=== PATIENT | male | born 1975 | race Caucasian/White ===

== ENCOUNTER → 2018-11-17 | Outpatient (CLI) | payer OTHER ==
[~2018-11-17] MED LIST: AUGMENTIN 500 M1 TAB PO; CLARITIN10 MG PO; LEVOFLOXACIN500 MG PO; MOTRIN800 MG PO; NAPROSYN500 MG PO; ULTRAM50 MG PO
== END | disposition home or self-care (01) ==
LOC: RAD 07:27
DX: J18.9 Pneumonia, unspecified organism (principal)

== ENCOUNTER → 2018-12-03 | Outpatient (CLI) | payer OTHER ==
[~2018-12-03] MED LIST changes: +FLONASE ALLERG9.9 ML NAS; +PROVENTIL HFA6.7 GM PO
== END | disposition home or self-care (01) ==
LOC: RAD 13:10
DX: J18.9 Pneumonia, unspecified organism (principal)

== ENCOUNTER → 2018-12-17 | Outpatient (CLI) | payer OTHER | END | disposition home or self-care (01) | LOC: RAD 15:22 | DX: J98.3 Compensatory emphysema (principal); R07.9 Chest pain, unspecified ==

== ENCOUNTER → 2018-12-22 | Outpatient (CLI) | payer OTHER | END | disposition home or self-care (01) | LOC: CT 16:26 | DX: R91.8 Other nonspecific abnormal finding of lung field (principal); R07.89 Other chest pain; R05 Cough; R06.02 Shortness of breath; R09.89 Other specified symptoms and signs involving the circulatory and respiratory systems ==

== ENCOUNTER → 2018-12-23 | Outpatient (CLI) | payer OTHER ==
[2018-12-23 11:55] LABS: BASO % 0.6 % (0.0-1.0); EOS # 0.1 10*3/uL (0.0-0.4); EOS % 2.2 % (1.0-4.0); HEMATOCRIT 45.1 % (42.0-52.0); HEMOGLOBIN 14.7 g/dl (14.0-18.0); LYMPH # 1.6 10*3/uL (1.3-4.4); LYMPH % 24.8 % (27.0-41.0); MEAN CELL VOLUME 91.7 fl (80.0-94.0); MEAN CORPUSCULAR HGB 29.9 pg (27.0-31.0); MEAN CORPUSCULAR HGB CONC 32.6 g/dl (33.0-37.0); MEAN PLATELET VOLUME 9.2 fl (9.6-12.3); MONO # 0.5 10*3/uL (0.1-1.0); MONO % 7.2 % (3.0-9.0); NEUT # 4.1 10*3/uL (2.3-7.9); NEUT % 64.9 % (47.0-73.0); PLATELET COUNT AUTOMATED 252 10*3/uL (130-400); RED BLOOD COUNT 4.92 10*6/uL (4.50-5.90); RED CELL DISTRI WIDTH 13.2 % (0-14.5); WHITE BLOOD COUNT 6.3 10*3/uL (4.8-10.8)
[2018-12-24 07:07] LABS: RHEUMATOID ARTHRITIS FACTOR <10.0 IU/mL (0.0-13.9)
[2018-12-27 01:07] LABS: IMMUNOGLOBULIN IgE 002170 3 IU/mL (0-100)
== END | disposition home or self-care (01) ==
LOC: LAB 11:26
PROVIDERS: Internal Medicine Critical Care Medicine
DX: J18.9 Pneumonia, unspecified organism (principal)

== ENCOUNTER → 2018-12-24 | Outpatient (CLI) | payer OTHER | END | disposition home or self-care (01) | LOC: LAB 14:58 | DX: J18.9 Pneumonia, unspecified organism (principal) ==

== ENCOUNTER → 2018-12-25 | Day surgery (SDC) | payer OTHER ==
[~2018-12-25] VITALS: Ht 172.7 cm; Wt 78.0 kg
--- NOTE | ~2018-12-25 | PROC NOTE ---
[place], [place] PROCEDURE NOTE NAME: JODY LEE UNIT #: [id number] ROOM: DOCTOR: FABIO LUCIANO MD,RON BIRTHDATE: [birth year] DOS: 12/25/2018 PREOPERATIVE DIAGNOSES: The patient with persistent area of infiltration, consolidation, volume loss in the left lower lobe superior subsegment and the left lower lobe. COMPLICATIONS: None. POSTOPERATIVE DIAGNOSES: The patient with persistent area of infiltration, consolidation, volume loss in the left lower lobe superior subsegment and the left lower lobe. PROCEDURE DESCRIPTION: Informed consent obtained with the patient. The patient brought to the OR and placed in a supine position. Conscious sedation administered by Anesthesia Department. After achieving proper sedation, airway introduced into the mouth. Diluted 2% of lidocaine total of 20 mL volume, sprayed for the patient vocal cords as well the tracheal lumen and the left main stem bronchus. After good local anesthesia obtained for this patient. The bronchoscope advanced to vocal cord, tracheal lumen. Marlin noted sharp. Minimal secretion present, but decreased. The BAL was taken in the superior segment of the left lower lobe without difficulty. No endobronchial obstructive lesion noted. Bronchial washings otherwise also taken. Bronchial washing sent for cell count, differential, pneumocystis stain, cytology and all the necessary cultures. Procedure well tolerated without difficulty. Postoperative findings were discussed with the patient's spouse as well. RON MCCARTHY MD CM:PROCNOTE:PROCEDURE NOTE [id number] RON LUCIANO MD
[2018-12-25 07:30] VITALS: BP 135/71
[2018-12-25 09:41] VITALS: BP 126/106
[2018-12-25 09:56] VITALS: BP 118/60
[2018-12-25 10:11] VITALS: BP 115/66
[2018-12-25 10:21] VITALS: BP 119/69
[2018-12-25 12:57] LABS: BF LYMPHOCYTES 66 %; BF MACROPHAGES 29 %; BF NEUTROPHILS 3 %
[2018-12-26 14:06] LABS: ACID FAST SPEC PROCESSING Concentration (.)
[2018-12-26 14:06] LABS: ACID FAST SPEC PROCESSING Concentration (.)
[2019-02-04 10:08] LABS: ACID FAST CULTURE Negative (.)
[2019-02-04 10:08] LABS: ACID FAST CULTURE Negative (.)
== END | disposition home or self-care (01) ==
LOC: SDC 12-24 15:30
PROVIDERS: Internal Medicine Critical Care Medicine
DX: R91.8 Other nonspecific abnormal finding of lung field (principal); K21.9 Gastro-esophageal reflux disease without esophagitis; E66.9 Obesity, unspecified; Z68.26 Body mass index [BMI] 26.0-26.9, adult; Z79.899 Other long term (current) drug therapy; Z87.01 Personal history of pneumonia (recurrent); Z98.890 Other specified postprocedural states; Z82.49 Family history of ischemic heart disease and other diseases of the circulatory system; Z83.3 Family history of diabetes mellitus

== ENCOUNTER → 2019-01-18 | Outpatient (CLI) | payer OTHER | END | disposition home or self-care (01) | LOC: RAD 16:55 | DX: J18.8 Other pneumonia, unspecified organism (principal) ==

== ENCOUNTER 2024-09-22 17:09 | Emergency (ER) | payer OTHER ==
[~2024-09-22] VITALS: Ht 172.7 cm; Wt 83.5 kg
[2024-09-22] MEDS ORDERED: AMOX-CLAV 875-1 EACH PO (20:54)
[2024-09-22] MEDS ORDERED: Amoxicillin/Clavulanate Pota 875 MG TAB PO ONE (20:55)
== END 2024-09-22 21:06 | disposition home or self-care (01) ==
LOC: ED 17:09
DX: J18.9 Pneumonia, unspecified organism (principal); Z88.8 Allergy status to other drugs, medicaments and biological substances

== ENCOUNTER → 2024-09-28 | Outpatient (CLI) | payer OTHER ==
[~2024-09-28] MED LIST changes: +AMOX-CLAV 875-1 EACH PO
== END | disposition home or self-care (01) ==
LOC: RAD 12:28
PROVIDERS: ATTEND Family Medicine
DX: J98.4 Other disorders of lung (principal); J18.1 Lobar pneumonia, unspecified organism; R07.81 Pleurodynia

== ENCOUNTER → 2024-10-11 | Outpatient (CLI) | payer OTHER | END | disposition home or self-care (01) | LOC: CT 13:31 | PROVIDERS: ATTEND Family Medicine | DX: R91.8 Other nonspecific abnormal finding of lung field (principal); J18.1 Lobar pneumonia, unspecified organism; R05.9 Cough, unspecified; R09.89 Other specified symptoms and signs involving the circulatory and respiratory systems; R06.02 Shortness of breath ==